=== PATIENT | female | born 1975 | race Caucasian/White ===

== ENCOUNTER 2020-01-23 14:38 | Emergency (ER) | payer OTHER, SELFPAY ==
[2020-01-23 15:02] VITALS: BP 104/69; PULSE 90; RESP 16; TEMP 37.1; O2SAT 98
--- NOTE | 2020-01-23 15:12 | ED.GENADULT ---
HPI - General Adult General Chief complaint: Abdominal Pain Stated complaint: Stomach pain/bloated/no appetite/headache Time Seen by Provider: 01/23/20 15:12 Source: patient Mode of arrival: ambulatory Limitations: no limitations History of Present Illness HPI narrative: 44-year-old female patient presents to the [facility] with complaints of abdominal pain for the past 2 days. Patient denies any vomiting or diarrhea but states that she has had some nausea. Patient states that she does feel full. Patient states that she feels like her belly is very distended, tight. Denies having a gallbladder or appendix. Patient states she is also had a hysterectomy. Patient states she is tried multiple things including Pepto-Bismol, Tums, Gas-X without any relief. Patient denies any fevers that she knows of. Related Data Home Medications Medication Instructions Recorded Confirmed Adults Multivitamin 01/23/20 levothyroxine 01/23/20 linaclotide [Linzess] mcg 01/23/20 pantoprazole PO 01/23/20 quetiapine mg PO 01/23/20 Allergies Allergy/AdvReac Type Severity Reaction Status Date / Time ciprofloxacin Allergy Unknown Swelling Verified 01/23/20 15:13 of Lip/Tongue/Throat topiramate [From Topamax] AdvReac Numbness Verified 01/23/20 15:13 Review of Systems Review of Systems: Narrative: CONSTITUTIONAL: Denies fever, chills, or sweats. EYES: Denies visual changes, redness, or discharge. ENT: Denies rhinorrhea, congestion, sore throat, or otalgia. CARDIOVASCULAR: Denies chest pain, palpitations, or edema. RESPIRATORY: Denies cough or dyspnea. GASTROINTESTINAL: Positive abdominal pain, nausea, denies vomiting, or diarrhea. GENITOURINARY: Denies dysuria or hematuria. SKIN: Denies rash or itching. MUSCULOSKELETAL: Denies back pain, joint pain, or myalgia. NEUROLOGIC: Denies headache, numbness, or weakness. PSYCHIATRIC: Denies anxiety or depression. [facility] Social History Social History Smoking status: Never smoker Alcohol intake: never Comments At the time of my signature I agree with nursing past medical history, surgical, social, and family history. There is no relevant family history pertinent to the presenting complaint. Exam Narrative: Exam Narrative: GENERAL: Well-appearing, well-nourished, and in no acute distress. HEAD: Normocephalic, atraumatic. EYES: PERRLA and EOMI. ENT: Nares clear, no rhinorrhea or epistaxis. Mucous membranes moist. NECK: Supple. No lymphadenopathy CHEST: Clear to auscultation. No respiratory distress. HEART: Regular rate and rhythm. No murmur heard. Normal peripheral pulses. ABDOMEN: Soft, distended. No guarding, rebound tenderness, or rigid. No pulsatilla masses. Hypoactive bowel sounds present in all four quadrants. Patient does have some tenderness noted around the umbilical area on palpation. No organomegaly. Negative Ruiz?s sign. No periumbicial tenderness. No Supra public tenderness or distension. Good femoral pulses bilaterally. No hernia noted. No scars or surface trauma. EXTREMITIES: Normal range of motion. No edema. SKIN: Warm, dry, no rash. NEURO: No focal deficits. Alert and oriented x3. Course Vital Signs Vital signs: Vital Signs Temperature 37.1 C 01/23/20 15:02 Pulse Rate 90 01/23/20 15:02 Respiratory Rate 16 01/23/20 15:02 Blood Pressure 104/69 01/23/20 15:02 Pulse Oximetry 98 01/23/20 15:02 Temperature 37.1 C 01/23/20 15:02 Pulse Rate 90 01/23/20 15:02 Respiratory Rate 16 01/23/20 15:02 Blood Pressure 104/69 01/23/20 15:02 Pulse Oximetry 98 01/23/20 15:02 Vital signs reviewed Transfer Transfered to: [facility] Transfer rationale: Abdominal pain Accepting physician: Dr. Whitmore Transfer comments: Called and spoke with VENTURA Jones at [facility] in [facility] and gave her report on patient that we are sending over with complaints of generalized ab
== END 2020-01-23 15:44 | disposition short-term general hospital (02) ==
PROVIDERS: Emergency Provider Nurse Practitioner Family
DX: R10.33 Periumbilical pain (principal); K21.9 Gastro-esophageal reflux disease without esophagitis; E03.9 Hypothyroidism, unspecified; F32.9 Major depressive disorder, single episode, unspecified
CPT/HCPCS: 99212; G0463